=== PATIENT | female | born 1930 | race American Indian/Alaskan Native ===

== ENCOUNTER 2016-12-12 06:03 | Day surgery (SDC) | payer MEDICARE ==
[2016-12-11 07:51] VITALS: BMI 32.2
[2016-12-12] MEDS ORDERED: Phenylephrine 10 mg/ml Inj ONE (06:25)
[2016-12-12] MEDS ORDERED: Lidocaine 2% Inj (20ml) ONE (06:25)
[2016-12-12] MEDS ORDERED: Nitroglycerin 50mg in D5W 0 MG/0 ML BOTTLE IV ONE (06:26)
[2016-12-12] MEDS ORDERED: Iohexol 350mgl/ml 50 ML ONE (06:26)
[2016-12-12] MEDS ORDERED: Iodixanol 320 MG/ML 100 ML BOTTLE IV ONE (06:26)
[2016-12-12] MEDS ORDERED: Iodixanol 320 MG/ML 200 ML BOTTLE IV ONE (06:26)
[2016-12-12] MEDS ORDERED: Midazolam 2 MG/2 ML VIAL ONE ×2 (07:09→08:35)
[2016-12-12 09:30] VITALS: TEMP 97.6
[2016-12-12] MEDS ORDERED: Sodium Chloride 0.9% 1,000 ML IV SCH (09:45)
[2016-12-12 10:41] VITALS: O2SAT 99
[2016-12-12 11:31] VITALS: BP 131/58; PULSE 59; RESP 18
--- NOTE | 2016-12-12 19:27 | CARDCATH ---
PROCEDURE DATE: 12/12/2016 PROCEDURES: 1. Right and left heart catheterization. 2. Selective left and right coronary angiography. 3. Left ventriculography. 4. Right femoral arteriography. 5. AngioSeal deployment. HISTORY OF PRESENT ILLNESS: This is an 86-year-old woman with valvular heart disease, coronary artery disease, who has had worsening exertional dyspnea, a cardiac catheterization was advised. INDICATION: As above. FINDINGS: Hemodynamics: The right heart pressure is reported as follows: The RA mean pressure was 8. The RV was 98/10. The PA was 98/30 with a pulmonary capillary wedge pressure of 35. The cardiac output was 3.0 liters per minute with cardiac index of 1.6 liters per minute per meter square by thermodilution method. A simultaneous pulmonary capillary wedge pressure and left ventricular pressure revealed evidence of a 10 mm micro valve gradient. Based upon these findings, the estimated mitral valve area is less than 1 sq cm. CORONARY ANATOMY: 1. The left main stem was normal. 2. The left anterior descending artery and its branches had mild irregularities. 3. The left circumflex artery had a mild 30% proximal stenosis and the obtuse marginal branches had minimal disease. 4. The right coronary artery was dominant and had a widely patent stent in its mid portion. LEFT VENTRICULOGRAPHY: A hand injection was performed in left ventricle revealing normal wall motion with an ejection fraction of 60%. There was no aortic valve gradient noted on catheter pullback. RIGHT FEMORAL ARTERIOGRAPHY: A right femoral arteriogram was performed in the JUAN projection. This revealed no evidence of significant disease. The puncture site was at the appropriate level and was then sealed with placement of an AngioSeal device. The venous sheath was removed and manual pressure applied until adequate hemostasis was achieved. CONCLUSIONS: 1. Patent RCA stent. 2. Mild left coronary disease. 3. Normal LV systolic function. 4. Severely elevated pulmonary artery pressures. 5. Severe mitral stenosis. RECOMMENDATIONS: At this time intensification with diuretic therapy is advised. Discussion will be had regarding possible valvular intervention although with her advanced age these would likely be a fairly high risk. Charly Vincent MD cc: Gera Whatley MD [facility] # [id number]
== END 2016-12-12 12:45 | disposition home or self-care (01) ==
LOC: CATH 06:03
PROVIDERS: ATTEND Internal Medicine Cardiovascular Disease
DX: I25.10 Atherosclerotic heart disease of native coronary artery without angina pectoris (principal); I34.2 Nonrheumatic mitral (valve) stenosis; I10 Essential (primary) hypertension; E11.9 Type 2 diabetes mellitus without complications; I25.2 Old myocardial infarction
CPT/HCPCS: 36415; 86850; 86900; 93460; 99152; 99153; C1760; C1769 ×2; C1894; C2629; J0360; J1644; J2250; J3010; J7040 ×2; Q9967

== ENCOUNTER 2017-01-07 11:58 | Observation (INO) | payer MEDICARE ==
[2017-01-07 12:22] VITALS: BMI 33.5
--- NOTE | 2017-01-07 12:30 | ED PDOC ---
Arrival/HPI - General Chief Complaint: Shortness Of Breath Time Seen by Provider: 01/07/17 12:10 Historian: Patient - History of Present Illness Narrative History of Present Illness (Text): 01/07/17 12:30 A 86 year old female, whose past medical history includes hypertension, severe mitral stenosis and CAD with stents on Lasix, presents to the emergency department complaining of shortness of breath for the past few months. Patient notes dyspnea on exertion and a dry cough. She reports her symptoms worsened today causing her to come in today for further evaluation. She reports that she cannot walk upstairs without getting short of breath. Patient denies any fever, chills, nausea, vomiting, abdominal pain, chest pain or any other complaints. She reports that she was told to increase her lasixs but has not because it makes her urinate too much. PMD: Dr. Whatley Hopper Operator: Dr. Guajardo Time/Duration: Other (few months) Symptom Course: Worsening (today) Quality: Other Context: Home Past Medical History - Provider Review Nursing Documentation Reviewed: Yes - Reproductive Menopause: Yes - Cardiac Hx Cardiac Disorders: Yes Hx Hypertension: Yes Hx Pacemaker: No - Pulmonary Hx Respiratory Disorders: No - Neurological Hx Paralysis: No - HEENT Hx HEENT Disorder: No - Renal Hx Renal Disorder: No - Endocrine/Metabolic Hx Diabetes Mellitus Type 2: Yes - Hematological/Oncological Hx Blood Transfusions: No Hx Blood Transfusion Reaction: No - Integumentary Hx Dermatological Disorder: No - Musculoskeletal/Rheumatological Hx Musculoskeletal Disorders: Yes - Gastrointestinal Hx Constipation: Yes - Genitourinary/Gynecological Hx Genitourinary Disorders: No - Psychiatric Hx Emotional Abuse: No Hx Physical Abuse: No Hx Substance Use: No - Surgical History Hx Cardiac Catheterization: Yes - Anesthesia Hx Anesthesia Reactions: No Hx Malignant Hyperthermia: No - Suicidal Assessment Feels Threatened In Home Enviroment: No Family/Social History - Physician Review Nursing Documentation Reviewed: Yes Family/Social History: No Known Family HX Smoking Status: Former Smoker Hx Alcohol Use: No Hx Substance Use: No Hx Substance Use Treatment: No Allergies/Home Meds Allergies/Adverse Reactions: Allergies codeine Allergy (Severe, Verified 12/11/16 07:51) UNK CAN'T REMEMBER EXACT REACTION Home Medications: Home Meds Medication Instructions Recorded Confirmed Aspirin [Aspir 81] 81 mg PO DAILY 07/11/11 12/12/16 Insulin NPH Human Isophane 20 unit SC ACS 07/11/11 12/12/16 [Humulin N] Latanoprost 0.005% Opht [XALATAN 1 drop EACHEYE DAILY 07/11/11 01/07/17 2.5 Ml] Calcium Carbonate/Vitamin D3 1 tab PO DAILY 12/11/16 12/12/16 [Caltrate 600 + D Tablet] Furosemide [Lasix] 20 mg PO DAILY 12/11/16 01/07/17 Metoprolol Tartrate [Lopressor] 50 mg PO DAILY 12/11/16 01/07/17 Sulindac 150 mg PO DAILY 12/11/16 12/12/16 Valsartan/Hydrochlorothiazide 1 tab PO DAILY 12/11/16 12/12/16 [Valsartan and Hydrochlorothiazide 25 mg-160 M] Review of Systems - Physician Review All systems were reviewed & negative as marked: Yes - Review of Systems Constitutional: absent: Fevers, Night Sweats Respiratory: SOB, Cough Cardiovascular: JEFFERS. absent: Chest Pain Gastrointestinal: absent: Abdominal Pain, Constipation, Diarrhea, Nausea, Vomiting Genitourinary Female: absent: Dysuria Skin: absent: Rash Neurological: absent: Dizziness Physical Exam Vital Signs Reviewed: Yes Vital Signs Pulse Resp BP Pulse Ox 01/07/17 14:24 60 16 139/72 94 L 01/07/17 13:21 150/67 01/07/17 13:07 23 01/07/17 12:21 83 18 174/88 H 96 Temperature: Afebrile Blood Pressure: Hypertensive Pulse: Regular Respiratory Rate: Normal Appearance: Positive for: Well-Appearing, Non-Toxic, Comfortable Pain Distress: None Mental Status: Positive for: Alert and Oriented X 3 - Systems Exam Head: Present: Atraumatic, Normocephalic Pupils: Present: PERRL Extroacular Muscles: Present: EOMI Conjunctiva: Present: Normal Mouth: Present: Moist Mucous Membranes Neck: Present: Normal Range of Motion Respiratory/Chest: Present: Decreased Breath Sounds (Decrease air entry in right lung base). No: Respiratory Distress, Accessory Muscle Use Cardiovascular: Present: Regular Rate and Rhythm, Normal S1, S2. No: Murmurs Abdomen: Present: Normal Bowel Sounds. No: Tenderness, Distention, Peritoneal Signs Back: Present: Normal Inspection Upper Extremity: Present: Normal Inspection, NORMAL PULSES. No: Cyanosis, Edema Lower Extremity: Present: Normal Inspection (Scant lower extremity edema), Edema , NORMAL PULSES. No: CALF TENDERNESS Neurological: Present: GCS=15, CN II-XII Intact, Speech Normal Skin: Present: Warm, Dry, Normal Color. No: Rashes Psychiatric: Present: Alert, Oriented x 3, Normal Insight, Normal Concentration Medical Decision Making ED Course and Treatment: 01/07/17 12:30 Impression: A 86 year old female with shortness of breath Plan: -- Chest xray -- EKG -- Labs -- Aspirin -- Reassess and disposition Progress Notes: Report Date : 01/07/2017 13:41:34 Procedure: Chest xray Dictator : Barber Scruggs MD IMPRESSION: Moderate vascular and interstitial congestion 01/07/17 13:52 CXray consistent with pulmonary venous congestion. EKG shows NSR at 84bpm with LAD. No acute ST changes. Trop x 1 negative. BNP elevated. Lasix ordered. Spoke to Dr. Lindsay who accepted patient. - Lab Interpretations Lab Results: 01/07/17 12:50 01/07/17 12:50 Lab Results 01/07/17 12:50: Sodium 143, Potassium 4.3, Chloride 106, Carbon Dioxide 27, Anion Gap 14, BUN 25 H, Creatinine 1.1, Est GFR ( Amer) 57, Est GFR (Non- Af Amer) 47, Random Glucose 136 H, Calcium 10.2, Total Bilirubin 1.4 H, AST 28, ALT 24, Alkaline Phosphatase 144 H, Total Creatine Kinase 141, Troponin I < 0.01 , NT-Pro-B Natriuret Pep 1280 H, Total Protein 7.1, Albumin 4.1, Globulin 3.0, Albumin/Globulin Ratio 1.4 01/07/17 12:50: D-Dimer, Quantitative 419 H 01/07/17 12:50: WBC 7.3, RBC 4.41, Hgb 12.1, Hct 37.9, MCV 85.9, MCH 27.4, MCHC 31.9, RDW 13.4, Plt Count 182, MPV 13.4 H, Gran % 74.6 H, Lymph % (Auto) 12.8 L , [place] % (Auto) 11.5 H, Eos % (Auto) 1.0 L, Baso % (Auto) 0.1, Gran # 5.43, Lymph # 0.9 L, [place] # 0.8 H, Eos # 0.1, Baso # 0.01 I have reviewed the lab results: Yes - RAD Interpretation Radiology Orders: 01/07/17 12:32 CHEST PORTABLE [RAD] Stat - Medication Orders Current Medication Orders: Aspirin (Ecotrin) 81 mg PO DAILY MADINA Furosemide (Lasix) 40 mg IVP DAILY MADINA Insulin Human NPH (Humulin N) 20 units SC ACBHS MADINA Metoprolol Tartrate (Lopressor) 50 mg PO DAILY MADINA Non-Formulary Medication (Sulindac [Sulindac]) 150 mg PO DAILY MADINA Discontinued Medications Aspirin (Aspirin Chewable) 324 mg PO STAT STA Stop: 01/07/17 12:34 Last Admin: 01/07/17 12:56 Dose: 324 mg Furosemide (Lasix) 40 mg IVP STAT STA Stop: 01/07/17 13:15 Last Admin: 01/07/17 13:21 Dose: 40 mg MAR Blood Pressure Document 01/07/17 13:21 RG (Rec: 01/07/17 13:26 [id number]) Blood Pressure Blood Pressure (100/60-150/90) 150/67 IVP Administration Document 01/07/17 13:21 (Rec: 01/07/17 13:26 [id number]) Charges for Administration # of IVP Administrations 1 - Scribe Statement The provider has reviewed the documentation as recorded by the Alejandraibconcepcion Tate Provider Scribe Attestation: All medical record entries made by the Scribe were at my direction and personally dictated by me. I have reviewed the chart and agree that the record accurately reflects my personal performance of the history, physical exam, medical decision making, and the department course for this patient. I have also personally directed, reviewed, and agree with the discharge instructions and disposition. Disposition/Present on Arrival - Present on Arrival Any Indicators Present on Arrival: No History of DVT/PE: No History of Uncontrolled Diabetes: No Urinary Catheter: No History of Decub. Ulcer: No History Surgical Site Infection Following: None - Disposition Have Diagnosis and Disposition been Completed?: Yes Diagnosis: Congestive heart failure Disposition: HOSPITALIZED Disposition Time: 13:53 Patient Plan: Observation Patient Problems: Current Active Problems Problem Status Onset Congestive heart failure Acute Condition: FAIR
[2017-01-07 13:00] LABS: BASO # 0.01 K/mm3 (0.0-2.0); BASO % 0.1 % (0.0-3.0); EOS # 0.1 (0.0-0.7); GRAN # 5.43 (1.4-6.5); GRAN % 74.6 % (50.0-68.0); HEMATOCRIT 37.9 % (36.0-48.0); LYMPH # 0.9 (1.2-3.4); LYMPH % 12.8 % (22.0-35.0); MEAN CELL VOLUME 85.9 fl (80.0-105.0); MEAN CORPUSCULAR HEMOGLOBIN 27.4 pg (25.0-35.0); MEAN CORPUSCULAR HGB CONC 31.9 g/dl (31.0-37.0); MEAN PLATELET VOLUME 13.4 fl (7.0-11.0); MONO # 0.8 (0.1-0.6); MONO % 11.5 % (1.0-6.0); RED CELL DISTRIBUTION WIDTH 13.4 % (11.5-14.5); WHITE BLOOD COUNT 7.3 10^3/ul (4.5-11.0)
[2017-01-07 13:09] LABS: ALB/GLOB RATIO 1.4 (1.1-1.8); ALKALINE PHOSPHATASE 144 U/L (38-126); ALT/SGPT 24 U/L (7-56); AST/SGOT 28 U/L (14-36); BILIRUBIN,TOTAL 1.4 mg/dL (0.2-1.3); BLOOD UREA NITROGEN 25 mg/dL (7-21); CALCIUM 10.2 mg/dL (8.4-10.5); CARBON DIOXIDE 27 mmol/L (21-33); CHLORIDE 106 mmol/L (98-107); GFR AFRICAN-AMERICAN 57; GLUCOSE,RANDOM 136 mg/dL (70-110); POTASSIUM 4.3 mmol/L (3.6-5.0); SODIUM 143 mmol/L (132-148); TOTAL PROTEIN 7.1 g/dL (5.8-8.3)
[2017-01-07 13:22] LABS: TROPONIN I < 0.01 ng/mL
--- NOTE | 2017-01-07 13:43 | RAD ---
HISTORY: shortness of breath COMPARISON: 05/01/2013 FINDINGS: LUNGS: Moderate vascular and interstitial congestion PLEURA: No significant pleural effusion identified, no pneumothorax apparent. CARDIOVASCULAR: Normal. OSSEOUS STRUCTURES: No significant abnormalities. VISUALIZED UPPER ABDOMEN: Normal. OTHER FINDINGS: None. IMPRESSION: Moderate vascular and interstitial congestion
[2017-01-07] MEDS ORDERED: SULINDAC 150 MG PO SCH (14:15)
[2017-01-07] MEDS: Insulin Human NPH 1 UNITS/0.01 ML SC SCH (22:40)
--- NOTE | 2017-01-07 23:12 | CARD ---
APPROVED REPORT EKG Measurement Heart [id number] CO [id number] <Conclusion> Normal sinus rhythm Left axis deviation Anterolateral infarct, age undetermined Abnormal ECG
[2017-01-08 02:07] VITALS: RESP 20; O2SAT 94
[2017-01-08 06:27] VITALS: BP 125/79; TEMP 98.5
[2017-01-08] MEDS: Insulin Human NPH 1 UNITS/0.01 ML SC SCH (08:32)
[2017-01-08 09:06] VITALS: PULSE 66
--- NOTE | 2017-01-08 16:05 | CON ---
DATE: 01/08/2017 INDICATION: Shortness of breath. HISTORY OF PRESENT ILLNESS: This is an 86-year-old woman well known to me, admitted through the emergency room with increasing shortness of breath for several days. She has known severe mitral stenosis and underwent recent cardiac catheterization, which demonstrated mild coronary artery disease, patent right coronary stent, severe pulmonary hypertension, normal LV function. She was treated medically, elected not to have valve surgery. She recently went on a cruise and during this period of cruising and returning from the cruise, she neglected to take her Lasix. Her symptoms became worse and she came to the emergency room yesterday. After being given IV Lasix, she diuresed and feels better this morning. She is lying flat in bed with no shortness of breath, chest pain, PND, syncope, presyncope, lightheadedness, dizziness, vertigo, palpitations, edema, claudication, fever, chills, cough, sputum production, hemoptysis, abdominal pain, nausea, vomiting, diarrhea, constipation or melena. ADDITIONAL PAST MEDICAL HISTORY: Includes hypertension, diabetes, hysterectomy, and remote vein stripping. There was no history of gout, stroke or TIA. MEDICATIONS: At the time of admission include aspirin, insulin, Xalatan, calcium and vitamin D supplementation, Lasix, which was not taken recently, metoprolol 50 mg daily, and valsartan-hydrochlorothiazide 160/25 one tablet daily. ALLERGIES: SHE NOTES AN ALLERGY TO CODEINE. FAMILY HISTORY: Noncontributory. SOCIAL HISTORY: She lives at home. She has the assistance of her family. She does not smoke or drink. She is ambulatory. REVIEW OF SYSTEMS: A 10-point review of systems is otherwise unremarkable except as noted above. PHYSICAL EXAMINATION: GENERAL: She is a well-developed elderly woman, lying in bed, on telemetry, in no acute distress. VITAL SIGNS: She is in sinus rhythm at 53 to 63 beats per minutes. She is afebrile, blood pressure is 125/79, respirations are 20, and O2 saturation is 94% to 98% on nasal cannula. NECK: Reveals distended neck veins. No thyroid enlargement. No carotid bruits. HEART: Revealed a regular rhythm. Normal first and second heart sounds. There is a soft systolic murmur along the left sternal border. LUNGS: Lung espino, few rales at the bases, scattered rhonchi. ABDOMEN: Soft. Bowel sounds are present. No mass, organomegaly, tenderness, rebound, guarding, CVA tenderness or palpable abdominal aortic aneurysm. EXTREMITIES: Revealed no cyanosis, clubbing or edema. NEUROLOGIC: Awake, alert and oriented. SKIN: Warm and dry. No rash or cellulitis. LABORATORY DATA AND IMAGING: Chest x-ray shows vascular congestion. EKG shows sinus rhythm, left axis deviation, poor R-wave progression, nonspecific ST-wave changes. No change from a prior EKG. CBC is unremarkable. D-dimer is elevated at . Electrolytes, BUN and creatinine are unremarkable. Bilirubin 1.4, AST and ALT normal, alkaline phosphatase 144, CK 141, and troponin less than 0.01. BNP 1280. ASSESSMENT: Monica Dunlap is an 86-year-old woman with known mitral stenosis, which is severe; pulmonary hypertension, which is severe; coronary artery disease, which is mild status post stenting of the right coronary artery, which is patent; and normal left ventricular function, all these on recent cardiac catheterization. She developed symptoms after she stopped taking Lasix for a short period of time related to a cruise. She feels better this morning after IV Lasix and diuresis of about 700 mL during the night. PLAN: At this time, I would continue her telemetry status. She is getting IV Lasix. We will monitor I's and O's. She has already responded well to reinstitution of Lasix. I would continue metoprolol, aspirin, and valsartan. She is getting insulin coverage. She can be out of bed to a chair. I reviewed her recent cardiac catheterization data. She has not wanted valve surgery, so we will continue medical therapy. I spoke to her about compliance with diuretic therapy. She follows a no-added salt diet. I will follow along with you. I will make additional recommendations based on her clinical course. Hopefully her stay in the hospital will be brief and she will resume her prior status taking Lasix on a regular basis. Shahid Guajardo MD
--- NOTE | 2017-01-09 01:45 | HP ---
HISTORY OF PRESENT ILLNESS: This is an 86-year-old female who is coming into the hospital with past medical history of congestive heart failure, diabetes type 2, and hypertension. The patient says that she has been taking Lasix for her heart failure, but has not increased the dosage that her edm operator, Dr. Guajardo, had recommended. The patient has gone on a cruise and she started having worsening shortness of breath by the time she return. The patient was admitted for acute congestive heart failure exacerbation. She has a history of cardiac cath with coronary artery disease. She states, she has [address] She also has pulmonary hypertension. She had received IV Lasix in the Emergency Room when she was seen last night and she states her breathing has improved. She has no complaints of any chest pain. She has no nausea, no vomiting. No dizziness, no headache. No weakness in the arms or legs. No abdominal pain. No dysuria or frequency. REVIEW OF SYSTEMS: All other review of symptoms are within normal limits except as mentioned. ALLERGIES: CODEINE. MEDICATIONS: Her home medications have reviewed on the . FAMILY HISTORY: Noncontributory. SOCIAL HISTORY: She lives alone. She does not smoke or drink. FAMILY HISTORY: Noncontributory. PAST MEDICAL HISTORY: 1. Glaucoma. 2. Diabetes type 2. 3. Coronary artery disease. 4. Pulmonary hypertension. 5. Hypertension. PHYSICAL EXAMINATION: VITAL SIGNS: Temperature is 98.5, pulse of 53, blood pressure 125/79, respirations 20, O2 saturation 94%. Height is 5 feet 4 inches, weight is 182 pounds, BMI is 31. GENERAL: The patient lying in bed, uncomfortable, and in no acute distress. HEENT: Atraumatic and normocephalic. Anicteric sclerae. Moist mucosa. Loda conjunctivae. No oral lesions. NECK: No JVD, anterior and posterior adenopathy, thyromegaly, or bruits. CARDIOVASCULAR: S1 and S2 regular. No murmur, rubs, or gallop. LUNGS: Clear to auscultation bilaterally. No wheezes, rales, or rhonchi. ABDOMEN: Bowel sounds are positive. Soft, nontender and nondistended. No hepatosplenomegaly. No rebound and no guarding. NEUROLOGIC: No facial asymmetry. Tongue is midline. No vulva deviation. Power is 5/5 upper extremity and lower extremity. Sensation intact in upper extremity and lower extremity. PSYCHIATRIC: She is awake, alert and oriented x3. No anxiety or depression. She has normal affect. GENITOURINARY: No CVA tenderness. VASCULAR: 2+ pulses in the carotid pulses and pedal pulses. SKIN: No erythema or nodules SPINE: Shows normal curvature. EXTREMITIES: No cyanosis and clubbing. There is trace edema on the lower extremity. LABORATORY DATA: Labs have been reviewed. White count of 7.3, platelets count 182. Chemistry shows sodium 143, potassium 4.3, creatinine is 1.1, albumin is 4.1. D-dimer is 419. EKG done showed sinus rhythm with left axis deviation, QTc is 439. Chest x-ray done shows moderate vascular and interstitial congestion. ASSESSMENT: 1. Acute congestive heart failure secondary to diastolic dysfunction. 2. Pulmonary hypertension. 3. Mitral valve stenosis. 4. Coronary artery disease. PLAN: We will get Dr. Guajardo to evaluate the patient. The patient is going to follow up with Dr. Guajardo. She do not have insulin coverage. I will place her on aspirin and metoprolol for coronary artery disease. The patient will need to continue her blood pressure medications. The patient is interested in going home and continuing her home medications and she is aware of following up with Dr. Guajardo if she is discharged or come back to the ER. The patient is going to be on Sulindac for her pulmonary hypertension. Current condition is stable. Activities, increase as tolerated. Discharged home. Follow up with Dr. Guajardo in 1 to 2 weeks. Follow up with Dr. Whatley in 2 to 3 weeks. Bud Walters MD
== END 2017-01-08 13:34 | disposition home or self-care (01) ==
LOC: ED 11:58 → ERH 14:04 → 2RNO 18:15 → INTOOBSV 01-08 06:35 → OBSVTOIN 01-08 06:35
PROVIDERS: ADMIT Internal Medicine Nephrology; ATTEND Internal Medicine Nephrology
DX: I11.0 Hypertensive heart disease with heart failure (principal); I50.31 Acute diastolic (congestive) heart failure; I27.20 Pulmonary hypertension, unspecified; I05.0 Rheumatic mitral stenosis; I25.10 Atherosclerotic heart disease of native coronary artery without angina pectoris; Z95.5 Presence of coronary angioplasty implant and graft; E11.9 Type 2 diabetes mellitus without complications; H40.9 Unspecified glaucoma; Z79.82 Long term (current) use of aspirin; Z79.899 Other long term (current) drug therapy; K59.00 Constipation, unspecified; Z88.5 Allergy status to narcotic agent; R40.2412 Glasgow coma scale score 13-15, at arrival to emergency department
CPT/HCPCS: 36415; 71010; 80053; 82550; 82948; 83880; 84484; 85025; 85378; 93005; 96374; 99285; G0378; J1940